=== PATIENT | female | born 1980 | race Two or more races ===

== ENCOUNTER 2017-01-24 09:53 | Emergency (ER) | payer MEDICAID ==
[~2017-01-24 09:53] MED LIST: NAPROSYN500 M1 PO; PENICILLIN V P500 M1 PO; PYRIDIUM200 M2 PO
[2017-01-24] MEDS ORDERED: ZOFRAN4 M2 PO ×2 (13:52→15:54)
[2017-01-24] MEDS ORDERED: FOLIC ACID1 M1 PO (13:52)
[2017-01-24] MEDS ORDERED: NEURONTIN100 M1 PO (13:54)
[2017-01-24] MEDS ORDERED: TRIAMCINOLONE A15 G3 TP (13:54)
[2017-01-24] MEDS ORDERED: LEXAPRO20 M2 PO (14:01)
[2017-01-24 14:03] LABS: BASO % 0.2 % (0-2); EOS % 1.8 % (0-7); EOSINOPHIL ABSOLUTE COUNT 0.1 tho/cmm (0.0-0.7); HCT-HEMATOCRIT 40.7 % (34.0-49.0); HGB-HEMOGLOBIN 14.4 gm/dl (12.0-15.5); IMMATURE GRANULOCYTES ABSOLUTE 0.03 tho/cmm (0-0.03); IMMATURE GRANULOCYTES PERCENT 0.5 % (0-0.3); LYMPH % 37.6 % (20-45); LYMPH ABSOLUTE COUNT 2.1 tho/cmm (0.8-4.5); MCH (MEAN CORPUSCULAR HGB) 31.6 pg (28.0-32.0); MCHC MEAN CORPUSCULAR HGB CONC 35.4 % (32.0-36.0); MCV (MEAN CELL VOLUME) 89.5 fl (82.0-96.0); MEAN PLATELET VOLUME 9.3 cmc (9.4-12.4); MONO % 6.8 % (0-12); MONOCYTE ABSOLUTE COUNT 0.4 tho/cmm (0.0-1.2); NEUTROPHILS % 53.1 % (40-80); PLATELET COUNT 284 tho/cmm (150-450); RED BLOOD COUNT 4.55 mil/cmm (4.00-5.20); RED CELL DISTRIBUTION WIDTH 12.5 % (12.4-16.4); WHITE BLOOD COUNT 5.6 tho/cmm (4.0-10.0)
[2017-01-24 14:09] LABS: URINE BILIRUBIN NEGATIVE (NEG); URINE BLOOD LARGE (NEG); URINE GLUCOSE (UA) NEGATIVE (NEG); URINE KETONE NEGATIVE (NEG); URINE LEUKOCYTE ESTERASE NEGATIVE (NEG); URINE NITRITE NEGATIVE (NEG); URINE PROTEIN NEGATIVE (NEG)
[2017-01-24 14:10] LABS: URINE APPEARANCE HAZY; URINE COLOR PALE YELLOW
[2017-01-24 14:18] LABS: ALBUMIN 4.1 g/dl (3.5-5.0); ALKALINE PHOSPHATASE 111 U/L (33-138); ALT/SGPT 38 U/L (12-78); ANION GAP 13 mmol/L (0-20); AST/SGOT 19 U/L (10-40); BILIRUBIN,TOTAL 0.4 mg/dl (0-1.5); BLOOD UREA NITROGEN 10 mg/dl (6-24); CALCIUM 9.1 mg/dl (8.5-10.5); CARBON DIOXIDE-VENOUS 29 mmol/L (22-32); CHLORIDE 103 mmol/l (96-110); CREATININE 0.67 mg/dl (0.50-1.10); GLUCOSE 89 mg/dL (70-110); LIPASE 100 U/L (73-393); POTASSIUM 4.1 mmol/L (3.7-5.1); SODIUM 141 mmol/L (135-145); eGFR VALUE FOR BLACK >90 mL/Min
[2017-01-24 14:20] LABS: URINE RBC 0-2 /[HPF] (0-5); URINE WBC 0 /[HPF] (0-5)
[2017-01-24 14:24] LABS: PREGNANCY-SERUM NEGATIVE (NEGATIVE)
[2017-01-24] MEDS ORDERED: NORCO 5-325 TA1 EACH PO (15:54)
[2017-05-14] MEDS ORDERED: VENLAFAXINE H37.5 M3 PO (15:59)
[2017-05-14] MEDS ORDERED: OMEPRAZOLE20 M3 PO (16:00)
[2017-05-14] MEDS ORDERED: VIBRAMYCIN100 M1 PO (16:00)
[2017-05-14] MEDS ORDERED: HYDROCODONE-HO473 ML PO (16:37)
[2017-05-14] MEDS ORDERED: PREDNISONE20 M1 PO (16:37)
== END 2017-01-24 16:01 ==
LOC: EDMED 09:53
PROVIDERS: Emergency Medicine
DX: R10.9 Unspecified abdominal pain (principal); R30.0 Dysuria; R34 Anuria and oliguria; F32.9 Major depressive disorder, single episode, unspecified; Z79.899 Other long term (current) drug therapy
CPT/HCPCS: J1885; J2270; J7030